=== PATIENT | female | born 1975 | race Two or more races ===

== ENCOUNTER 2023-11-23 19:42 | Emergency (ER) | payer OTHER ==
[~2023-11-23] VITALS: Ht 157.5 cm; Wt 86.2 kg
[~2023-11-23 19:42] MED LIST: BACTRIM DS TABL1 TAB PO; CIPRO500 MG PO; DOLOGEN CAPLET1 EACH PO; LEVSIN0.125 MG PO; PYRIDIUM200 MG PO; ULTRACET PO; ZANTAC300 MG PO
== END 2023-11-24 04:42 | disposition home or self-care (01) ==
LOC: ER 19:43
DX: M54.50 Low back pain, unspecified (principal); V43.52XA Car driver injured in collision with other type car in traffic accident, initial encounter; Y93.89 Activity, other specified; Y92.413 State road as the place of occurrence of the external cause; Z88.6 Allergy status to analgesic agent